=== PATIENT | female | born 1965 | race Caucasian/White ===

== ENCOUNTER 2017-05-19 16:08 | Emergency (ER) | payer SELFPAY ==
[~2017-05-19 16:08] MED LIST: ATARAX25 MG PO; DIFLUCAN 100MG100 MG PO; HUMALOG100 UNIT/1 SC; LISINOPRIL-HCT1 EAC1 PO; LOPID600 MG PO; NEURONTIN300 MG PO; NEURONTIN600 MG PO; PRILOSEC20 MG PO; SEROQUEL400 MG PO
== END 2017-05-19 17:54 | disposition home or self-care (01) ==
LOC: FER 16:08
DX: S39.012A Strain of muscle, fascia and tendon of lower back, initial encounter (principal); S80.01XA Contusion of right knee, initial encounter; S50.01XA Contusion of right elbow, initial encounter; I10 Essential (primary) hypertension; E11.9 Type 2 diabetes mellitus without complications; F31.9 Bipolar disorder, unspecified; F17.210 Nicotine dependence, cigarettes, uncomplicated; Z79.4 Long term (current) use of insulin; Z79.899 Other long term (current) drug therapy; W17.89XA Other fall from one level to another, initial encounter; Y92.009 Unspecified place in unspecified non-institutional (private) residence as the place of occurrence of the external cause
CPT/HCPCS: 72100; 99284; J1100; J1885

== ENCOUNTER 2020-09-14 21:32 | Emergency (ER) | payer OTHER ==
[~2020-09-14 21:32] MED LIST changes: +3IN1 COMMODE; +AUGMENTIN 875-1 EACH PO; +BACTRIM DS TAB1 EACH PO; +BASAGLAR K100 UNIT/1 SC; +BENTYL10 MG PO; +BUSPIRONE HCL15 MG PO; +CARAFATE1 GM PO; +CIPRO500 MG PO; +CLEOCIN300 MG PO; +DIFLUCAN150 M1 PO; +DOXEPIN HCL10 MG PO; +EFFEXOR XR37.5 MG PO; +FLEXERIL10 MG PO; +FLORINEF0.1 MG PO; +HABITROL14 MG TD; +HUMALOG 75100 UNIT/M SQ; +HUMULIN R100 UNIT/1 SC; +IBUPROFEN800 MG PO; +K-DUR20 MEQ PO; +KEFLEX500 MG PO; +KETOROLAC15 MG/1 M1 PO; +LAMICTAL100 MG PO; +LAMICTAL200 MG PO; +LANTUS **100 UNITS/ SC; +LASIX20 MG PO; +LISINOPRIL10 MG PO; +LOPRESSOR25 MG PO; +LOPRESSOR50 MG PO; +MELATONIN10 M2 PO; +NAPROXEN500 MG PO; +NEXIUM10 MG PO; +NORCO 5-325 TA1 EACH PO; +NORVASC5 MG PO; +NYSTATIN SUSP1 ML/ML SSW; +ONDANSETRON ODT4 MG SL; +PEPCID AC20 MG PO; +PERCOCET 5-3251 EACH PO; +PHENERGAN25 M1 PO; +PRILOSEC OTC20 MG PO; +PROMETHEGA12.5 MG/SU PR; +SEROQUEL 100MG100 MG PO; +SEROQUEL 25MG T25 MG PO; +SKELAXIN800 MG PO; +TIZANIDINE HCL4 M1 PO; +ZOCOR5 MG PO; +ZOFRAN4 MG PO; +ZOFRAN8 MG PO
[2020-09-14 22:43] LABS: BASOPHIL 0.5 % (0-2); EOSINOPHIL 2.1 % (0-5); HCT 35.5 % (37.0-47.0); HGB 11.3 g/dl (12.5-16.0); LYMPHOCYTE 20.2 % (15-48); MCH 27.1 pg (25.0-31.0); MCHC 31.8 g/dL (32.0-36.0); MCV 85.1 fL (78.0-100.0); MONOCYTE 7.8 % (0-12); MPV 11.1 fL (6.0-9.5); NEUTROPHIL 69.2 % (41-80); NRBC 0; PLT 302 K/uL (150-400); RBC 4.17 M/uL (4.20-5.40); RDW 15.2 % (11.5-14.0); WBC 8.6 K/uL (4.0-10.5)
[2020-09-14 23:09] LABS: LACTIC ACID 0.7 mmol/L (0.4-1.9)
[2020-09-14 23:13] LABS: ALBUMIN 3.6 g/dL (3.4-5.0); BILIRUBIN - TOTAL 0.2 mg/dL (0.2-1.0); BUN/CREAT RATIO (CALC) 26.1 RATIO; CREATININE 1.8 mg/dL (0.51-0.95); GLOBULIN (CALCULATION) 4.6 g/dL; POTASSIUM 5.1 mmol/L (3.5-5.1); TOTAL PROTEIN 8.2 g/dL (6.4-8.2)
[2020-09-15 00:35] LABS: BILIRUBIN NEGATIVE (NEGATIVE); BLOOD NEGATIVE Ery/uL (NEGATIVE); CLARITY CLEAR (CLEAR); COLOR YELLOW (YELLOW); GLUCOSE (U) 3+ mg/dL (NORMAL); LEUKOCYTES NEGATIVE Leu/uL (NEGATIVE); NITRITE NEGATIVE (NEGATIVE); PROTEIN NEGATIVE (NEGATIVE); UROBILINOGEN 0.2 mg/dL (0.2-1.0); pH 6.5 (5.0-9.0)
[2020-09-15] MEDS ORDERED: PHENERGAN25 M1 PO (01:26)
[2020-09-15] MEDS ORDERED: PERCOCET 7.5/321 TAB PO (02:02)
== END 2020-09-15 02:29 | disposition home or self-care (01) ==
LOC: FER 21:32
PROVIDERS: Emergency Medicine Emergency Medical Services
DX: K85.90 Acute pancreatitis without necrosis or infection, unspecified (principal); E11.9 Type 2 diabetes mellitus without complications; F17.210 Nicotine dependence, cigarettes, uncomplicated; Z90.710 Acquired absence of both cervix and uterus; Z90.49 Acquired absence of other specified parts of digestive tract; Z88.8 Allergy status to other drugs, medicaments and biological substances; Z79.4 Long term (current) use of insulin
CPT/HCPCS: 36415; 74018; 80053; 81003; 82150; 83605; 83690; 84145; 85025; 87070; 87077; 87205; J1170; J2550; J7030

== ENCOUNTER 2020-11-23 04:57 | Inpatient (IN) | payer OTHER ==
[~2020-11-23 04:57] MED LIST changes: +PERCOCET 7.5/321 TAB PO
[2020-11-23 06:07] LABS: BILIRUBIN NEGATIVE (NEGATIVE); BLOOD TRACE-INTACT Ery/uL (NEGATIVE); CLARITY CLEAR (CLEAR); COLOR YELLOW (YELLOW); GLUCOSE (U) 3+ mg/dL (NORMAL); LEUKOCYTES TRACE Leu/uL (NEGATIVE); NITRITE NEGATIVE (NEGATIVE); PROTEIN NEGATIVE (NEGATIVE); UROBILINOGEN 0.2 mg/dL (0.2-1.0)
[2020-11-23 06:07] LABS: BASOPHIL 0.2 % (0-2); EOSINOPHIL 0.3 % (0-5); HCT 30.7 % (37.0-47.0); HGB 10.1 g/dl (12.5-16.0); LYMPHOCYTE 4.6 % (15-48); MCH 27.9 pg (25.0-31.0); MCHC 32.9 g/dL (32.0-36.0); MCV 84.8 fL (78.0-100.0); MONOCYTE 5.8 % (0-12); MPV 10.7 fL (6.0-9.5); NEUTROPHIL 88.6 % (41-80); NRBC 0; PLT 246 K/uL (150-400); RBC 3.62 M/uL (4.20-5.40); RDW 15.6 % (11.5-14.0); WBC 13.6 K/uL (4.0-10.5)
[2020-11-23 06:39] LABS: BACTERIA TRACE; TRANSITIONAL EPITHELIAL CELLS RARE; URINARY RBC RARE; URINARY WBC RARE
[2020-11-23 06:40] LABS: RENAL EPITHELIAL CELLS RARE
[2020-11-23 06:44] LABS: ALBUMIN 3.4 g/dL (3.4-5.0); BILIRUBIN - TOTAL 0.2 mg/dL (0.2-1.0); BUN/CREAT RATIO (CALC) 22.5 RATIO; GLOBULIN (CALCULATION) 4.1 g/dL; POTASSIUM 4.6 mmol/L (3.5-5.1); TOTAL PROTEIN 7.5 g/dL (6.4-8.2)
[2020-11-23 12:39] LABS: PROTHROMBIN TIME 12.5 SECONDS (11.4-13.6)
[2020-11-23 16:14] LABS: CORONAVIRUS 2019 SARS-COV-2 NEGATIVE (NEGATIVE); INFLUENZA A NAA NEGATIVE (NEGATIVE)
[2020-11-23 17:47] LABS: URINE CREATININE 65.47 mg/dL (29.00-226.00)
[2020-11-24 04:39] LABS: ALBUMIN 2.8 g/dL (3.4-5.0); BILIRUBIN - TOTAL 0.3 mg/dL (0.2-1.0); BUN/CREAT RATIO (CALC) 20.2 RATIO; CREATININE 1.83 mg/dL (0.51-0.95); GLOBULIN (CALCULATION) 4.1 g/dL; POTASSIUM 4.6 mmol/L (3.5-5.1); TOTAL PROTEIN 6.9 g/dL (6.4-8.2)
[2020-11-24 05:27] LABS: BASOPHIL 0.3 % (0-2); EOSINOPHIL 0.7 & (0-5); HCT 33.4 % (37.0-47.0); HGB 10.2 g/dl (12.5-16.0); LYMPHOCYTE 15.2 % (15-48); MCH 26.9 pg (25.0-31.0); MCHC 30.5 g/dL (32.0-36.0); MCV 88.1 fL (78.0-100.0); MPV 10.4 fL (6.0-9.5); NEUTROPHIL 73.5 % (41-80); PLT 219 K/uL (150-400); RBC 3.79 M/uL (4.20-5.40); WBC 10.66 K/uL (4.0-10.5)
[2020-11-25 06:29] LABS: BASOPHIL 0.1 % (0-2); EOSINOPHIL 1.8 % (0-5); HCT 24.3 % (37.0-47.0); HGB 7.8 g/dl (12.5-16.0); LYMPHOCYTE 10.6 % (15-48); MCH 27.8 pg (25.0-31.0); MCHC 32.1 g/dL (32.0-36.0); MCV 86.5 fL (78.0-100.0); MONOCYTE 8.6 % (0-12); MPV 10.6 fL (6.0-9.5); NEUTROPHIL 78.5 % (41-80); NRBC 0; PLT 174 K/uL (150-400); RBC 2.81 M/uL (4.20-5.40); RDW 15.6 % (11.5-14.0); WBC 7.7 K/uL (4.0-10.5)
[2020-11-25 07:03] LABS: ALBUMIN 2.2 g/dL (3.4-5.0); BILIRUBIN - TOTAL 0.3 mg/dL (0.2-1.0); BUN/CREAT RATIO (CALC) 17.3 RATIO; CREATININE 2.49 mg/dL (0.51-0.95); GLOBULIN (CALCULATION) 3.7 g/dL; POTASSIUM 3.9 mmol/L (3.5-5.1); TOTAL PROTEIN 5.9 g/dL (6.4-8.2)
[2020-11-25] MEDS ORDERED: PERCOCET 10-321 EACH PO (13:20)
[2020-11-25] MEDS ORDERED: PHENERGAN25 M1 PO (13:20)
--- NOTE | 2020-11-25 14:26 | NUR ---
I have reviewed the assessment documented by the Student Nurse and agree with the findings.
== END 2020-11-25 14:50 | disposition home or self-care (01) | DRG 439 ==
LOC: FER 04:57 → FMS 11:57
PROVIDERS: Emergency Medicine; Student in an Organized Health Care Education/Training Program; ADMIT Allergy & Immunology Allergy
DX: K85.80 Other acute pancreatitis without necrosis or infection (principal); N17.9 Acute kidney failure, unspecified; E27.40 Unspecified adrenocortical insufficiency; K86.3 Pseudocyst of pancreas; K86.1 Other chronic pancreatitis; G89.29 Other chronic pain; I12.9 Hypertensive chronic kidney disease with stage 1 through stage 4 chronic kidney disease, or unspecified chronic kidney disease; E11.22 Type 2 diabetes mellitus with diabetic chronic kidney disease; E11.65 Type 2 diabetes mellitus with hyperglycemia; N18.30 Chronic kidney disease, stage 3 unspecified; F31.9 Bipolar disorder, unspecified; D63.1 Anemia in chronic kidney disease; F17.210 Nicotine dependence, cigarettes, uncomplicated; Z79.891 Long term (current) use of opiate analgesic; Z90.49 Acquired absence of other specified parts of digestive tract; Z86.19 Personal history of other infectious and parasitic diseases; Z79.899 Other long term (current) drug therapy; Z96.89 Presence of other specified functional implants; Z90.710 Acquired absence of both cervix and uterus; Z98.890 Other specified postprocedural states
CPT/HCPCS: 36415; 71045; 80053; 81001; 82150; 82570; 82962; 83036; 83605; 83690; 83735; 84300; 85025; 85610; C9113; J1170; J2270; J2405; J2543; J2550; J7030; U0002

== ENCOUNTER 2020-12-08 18:20 | Emergency (ER) | payer OTHER ==
[~2020-12-08 18:20] MED LIST changes: +PERCOCET 10-321 EACH PO
[2020-12-08 20:17] LABS: BASOPHIL 0.5 % (0-2); EOSINOPHIL 1.7 % (0-5); HCT 31.5 % (37.0-47.0); HGB 9.8 g/dl (12.5-16.0); LYMPHOCYTE 17.3 % (15-48); MCH 27.3 pg (25.0-31.0); MCHC 31.1 g/dL (32.0-36.0); MCV 87.7 fL (78.0-100.0); MONOCYTE 5.2 % (0-12); MPV 10.1 fL (6.0-9.5); NEUTROPHIL 74.9 % (41-80); NRBC 0; PLT 336 K/uL (150-400); RBC 3.59 M/uL (4.20-5.40); RDW 16.2 % (11.5-14.0)
[2020-12-08 20:45] LABS: ALBUMIN 3.3 g/dL (3.4-5.0); BILIRUBIN - TOTAL 0.2 mg/dL (0.2-1.0); BUN/CREAT RATIO (CALC) 19.9 RATIO; CREATININE 1.46 mg/dL (0.51-0.95); GLOBULIN (CALCULATION) 4.3 g/dL; POTASSIUM 4.7 mmol/L (3.5-5.1); TOTAL PROTEIN 7.6 g/dL (6.4-8.2)
== END 2020-12-09 00:30 | disposition home or self-care (01) ==
LOC: FER 18:20
PROVIDERS: Emergency Medicine Emergency Medical Services
DX: K86.1 Other chronic pancreatitis (principal); I10 Essential (primary) hypertension; F17.210 Nicotine dependence, cigarettes, uncomplicated; Z90.711 Acquired absence of uterus with remaining cervical stump; Z90.49 Acquired absence of other specified parts of digestive tract; Z88.8 Allergy status to other drugs, medicaments and biological substances; Z98.890 Other specified postprocedural states; Z79.899 Other long term (current) drug therapy
CPT/HCPCS: 36415; 80053; 82150; 83690; 84145; 85025; 87040; 96372; J1170; J2550; J7030

== ENCOUNTER 2021-01-20 02:07 | Day surgery (SDCO) | payer OTHER ==
[2021-01-20 03:16] LABS: ALBUMIN 3.2 g/dL (3.4-5.0); ALKALINE PHOSHATASE 133 U/L (46-116); ALT 32 U/L (14-59); AST 22 U/L (15-37); BILIRUBIN - DIRECT <0.05 mg/dL (0.00-0.20); BILIRUBIN - TOTAL 0.2 mg/dL (0.2-1.0); BUN 29 mg/dL (7-18); BUN/CREAT RATIO (CALC) 20.7 RATIO; CHLORIDE 103 mmol/L (98-107); CO2 (BICARBONATE) 25 mmol/L (21-32); GLOBULIN (CALCULATION) 4.1 g/dL; GLUCOSE 332 mg/dL (74-106); LIPASE 256 U/L (73-393); POTASSIUM 3.9 mmol/L (3.5-5.1); TOTAL PROTEIN 7.3 g/dL (6.4-8.2)
[2021-01-20 03:20] LABS: BASOPHIL 0.4 % (0-2); EOSINOPHIL 1.9 % (0-5); HCT 28.8 % (37.0-47.0); HGB 9.4 g/dl (12.5-16.0); LYMPHOCYTE 17.5 % (15-48); MCH 28.2 pg (25.0-31.0); MCHC 32.6 g/dL (32.0-36.0); MCV 86.5 fL (78.0-100.0); MONOCYTE 5.9 % (0-12); MPV 10.4 fL (6.0-9.5); NEUTROPHIL 73.3 % (41-80); NRBC 0; PLT 227 K/uL (150-400); RBC 3.33 M/uL (4.20-5.40); RDW 14.7 % (11.5-14.0); WBC 10.8 K/uL (4.0-10.5)
[2021-01-20 06:22] LABS: BILIRUBIN NEGATIVE (NEGATIVE); BLOOD NEGATIVE Ery/uL (NEGATIVE); CLARITY CLEAR (CLEAR); COLOR YELLOW (YELLOW); GLUCOSE (U) 3+ mg/dL (NORMAL); LEUKOCYTES NEGATIVE Leu/uL (NEGATIVE); NITRITE NEGATIVE (NEGATIVE); PROTEIN TRACE (LOW) mg/dL (NEGATIVE); SPECIFIC GRAVITY 1.015 (1.001-1.030); UROBILINOGEN 0.2 mg/dL (0.2-1.0)
[2021-01-20 06:25] LABS: HCG (URINE) SCREEN NEGATIVE (NEGATIVE)
[2021-01-20 06:53] LABS: BACTERIA TRACE; URINARY WBC RARE
[2021-01-21 06:06] LABS: BASOPHIL 0.2 % (0-2); EOSINOPHIL 2.2 % (0-5); HCT 30.8 % (37.0-47.0); HGB 9.8 g/dl (12.5-16.0); MCH 27.9 pg (25.0-31.0); MCHC 31.8 g/dL (32.0-36.0); MCV 87.7 fL (78.0-100.0); MONOCYTE 10.1 % (0-12); MPV 10.3 fL (6.0-9.5); NEUTROPHIL 69.3 % (41-80); NRBC 0; PLT 233 K/uL (150-400); RBC 3.51 M/uL (4.20-5.40); RDW 14.7 % (11.5-14.0); WBC 9.6 K/uL (4.0-10.5)
[2021-01-21 06:18] LABS: ALBUMIN 2.8 g/dL (3.4-5.0); BILIRUBIN - TOTAL 0.3 mg/dL (0.2-1.0); BUN/CREAT RATIO (CALC) 16.2 RATIO; CREATININE 1.36 mg/dL (0.51-0.95); GLOBULIN (CALCULATION) 4.3 g/dL; POTASSIUM 4.5 mmol/L (3.5-5.1); TOTAL PROTEIN 7.1 g/dL (6.4-8.2)
[2021-01-21] MEDS ORDERED: PERCOCET 10-321 EACH PO (14:29)
[2021-01-21] MEDS ORDERED: PHENERGAN25 M1 PO (14:29)
== END 2021-01-21 16:43 | disposition home or self-care (01) ==
LOC: FER 02:07 → FMS 08:11
PROVIDERS: Student in an Organized Health Care Education/Training Program; ADMIT Internal Medicine
DX: R10.13 Epigastric pain (principal); R10.12 Left upper quadrant pain; E11.22 Type 2 diabetes mellitus with diabetic chronic kidney disease; I12.9 Hypertensive chronic kidney disease with stage 1 through stage 4 chronic kidney disease, or unspecified chronic kidney disease; N18.9 Chronic kidney disease, unspecified; F31.9 Bipolar disorder, unspecified; E78.5 Hyperlipidemia, unspecified; F17.210 Nicotine dependence, cigarettes, uncomplicated; Z90.49 Acquired absence of other specified parts of digestive tract; Z82.49 Family history of ischemic heart disease and other diseases of the circulatory system; Z80.1 Family history of malignant neoplasm of trachea, bronchus and lung; Z79.4 Long term (current) use of insulin; Z20.822 Contact with and (suspected) exposure to COVID-19; Z87.442 Personal history of urinary calculi
CPT/HCPCS: 36415; 36600; 78264; 80048; 80053; 80076; 81001; 82009; 82803; 82962; 83690; 84145; 84484; 84703; 85025; 86140; A9541; G0378; J1170; J2550; Q0169; U0002

== ENCOUNTER 2021-02-09 20:33 | Day surgery (SDCO) | payer OTHER ==
[~2021-02-09] VITALS: Ht 175.3 cm; Wt 74.0 kg
[2021-02-09 21:13] LABS: BILIRUBIN NEGATIVE (NEGATIVE); BLOOD NEGATIVE Ery/uL (NEGATIVE); CLARITY HAZY (CLEAR); COLOR YELLOW (YELLOW); GLUCOSE (U) 3+ mg/dL (NORMAL); LEUKOCYTES NEGATIVE Leu/uL (NEGATIVE); NITRITE NEGATIVE (NEGATIVE); PROTEIN TRACE (LOW) mg/dL (NEGATIVE); UROBILINOGEN 0.2 mg/dL (0.2-1.0)
[2021-02-09 21:20] LABS: BACTERIA 2+; SQUAMOUS EPITHELIAL CELLS 20-50; URINARY RBC RARE; URINARY WBC RARE
[2021-02-09 21:35] LABS: BASOPHIL 0.3 % (0-2); EOSINOPHIL 2.3 % (0-5); HCT 31.8 % (37.0-47.0); HGB 10.8 g/dl (12.5-16.0); LYMPHOCYTE 13.3 % (15-48); MCH 28.8 pg (25.0-31.0); MCV 84.8 fL (78.0-100.0); MONOCYTE 5.2 % (0-12); MPV 10.9 fL (6.0-9.5); NEUTROPHIL 78.6 % (41-80); NRBC 0; PLT 279 K/uL (150-400); RBC 3.75 M/uL (4.20-5.40); RDW 14.4 % (11.5-14.0); WBC 9.3 K/uL (4.0-10.5)
[2021-02-09 22:08] LABS: CREATININE 1.98 mg/dL (0.51-0.95)
[2021-02-09 22:09] LABS: ALBUMIN 3.3 g/dL (3.4-5.0); BILIRUBIN - TOTAL 0.2 mg/dL (0.2-1.0); GLOBULIN (CALCULATION) 4.4 g/dL; POTASSIUM 5.4 mmol/L (3.5-5.1); TOTAL PROTEIN 7.7 g/dL (6.4-8.2)
[2021-02-10 05:52] LABS: BASOPHIL 0.4 % (0-2); EOSINOPHIL 2.9 % (0-5); HCT 29.2 % (37.0-47.0); HGB 9.5 g/dl (12.5-16.0); LYMPHOCYTE 27.4 % (15-48); MCH 28.2 pg (25.0-31.0); MCHC 32.5 g/dL (32.0-36.0); MCV 86.6 fL (78.0-100.0); MONOCYTE 6.1 % (0-12); MPV 10.8 fL (6.0-9.5); NEUTROPHIL 62.9 % (41-80); NRBC 0; PLT 231 K/uL (150-400); RBC 3.37 M/uL (4.20-5.40); RDW 14.4 % (11.5-14.0)
[2021-02-10 06:44] LABS: ALBUMIN 2.7 g/dL (3.4-5.0); BILIRUBIN - TOTAL 0.2 mg/dL (0.2-1.0); CREATININE 1.53 mg/dL (0.51-0.95); GLOBULIN (CALCULATION) 3.8 g/dL; POTASSIUM 4.1 mmol/L (3.5-5.1); TOTAL PROTEIN 6.5 g/dL (6.4-8.2)
[2021-02-11] MEDS ORDERED: LOPRESSOR25 MG PO (08:16)
[2021-02-11] MEDS ORDERED: HUMALOG 75100 UNIT/M SQ (08:16)
[2021-02-11] MEDS ORDERED: NEURONTIN400 MG PO (08:16)
[2021-02-11] MEDS ORDERED: FLORINEF0.1 MG PO ×2 (08:16→10:47)
[2021-02-11] MEDS ORDERED: BASAGLAR K100 UNIT/1 SC (08:16)
[2021-02-11] MEDS ORDERED: NORVASC5 MG PO (08:23)
[2021-02-11] MEDS ORDERED: PRINIVIL20 MG PO (08:23)
[2021-02-11 09:39] LABS: CREATININE 1.26 mg/dL (0.51-0.95); POTASSIUM 5.5 mmol/L (3.5-5.1)
== END 2021-02-11 12:47 | disposition home or self-care (01) ==
LOC: FER 20:33 → FMS 02-10 00:24
PROVIDERS: Emergency Medicine; Nurse Practitioner; ADMIT Allergy & Immunology Allergy
DX: I95.1 Orthostatic hypotension (principal); E27.40 Unspecified adrenocortical insufficiency; E11.65 Type 2 diabetes mellitus with hyperglycemia; E11.40 Type 2 diabetes mellitus with diabetic neuropathy, unspecified; I13.10 Hypertensive heart and chronic kidney disease without heart failure, with stage 1 through stage 4 chronic kidney disease, or unspecified chronic kidney disease; E11.22 Type 2 diabetes mellitus with diabetic chronic kidney disease; N18.30 Chronic kidney disease, stage 3 unspecified; D63.1 Anemia in chronic kidney disease; E87.1 Hypo-osmolality and hyponatremia; M25.552 Pain in left hip; M25.562 Pain in left knee; E78.5 Hyperlipidemia, unspecified; F10.11 Alcohol abuse, in remission; F17.210 Nicotine dependence, cigarettes, uncomplicated; E28.2 Polycystic ovarian syndrome; Z79.4 Long term (current) use of insulin; Z79.899 Other long term (current) drug therapy; Z88.8 Allergy status to other drugs, medicaments and biological substances; Z20.822 Contact with and (suspected) exposure to COVID-19; W19.XXXA Unspecified fall, initial encounter
CPT/HCPCS: 36415; 73501; 73560; 80048; 80053; 81001; 82533; 82962; 83036; 83690; 84484; 85025; 93005; G0378; J1644; J7030; U0002

== ENCOUNTER 2021-03-03 00:35 | Day surgery (SDCO) | payer OTHER ==
[~2021-03-03] VITALS: Ht 175.3 cm; Wt 73.7 kg
[~2021-03-03 00:35] MED LIST changes: +NEURONTIN400 MG PO; +PRINIVIL20 MG PO
[2021-03-03 01:23] LABS: BASOPHIL 0.2 % (0-2); EOSINOPHIL 1.9 % (0-5); HCT 27.3 % (37.0-47.0); HGB 8.9 g/dl (12.5-16.0); LYMPHOCYTE 22.6 % (15-48); MCH 28.3 pg (25.0-31.0); MCHC 32.6 g/dL (32.0-36.0); MCV 86.7 fL (78.0-100.0); MONOCYTE 6.4 % (0-12); MPV 10.5 fL (6.0-9.5); NEUTROPHIL 68.6 % (41-80); NRBC 0; PLT 214 K/uL (150-400); RBC 3.15 M/uL (4.20-5.40); RDW 14.1 % (11.5-14.0); WBC 9.6 K/uL (4.0-10.5)
[2021-03-03 01:45] LABS: BILIRUBIN NEGATIVE (NEGATIVE); BLOOD NEGATIVE Ery/uL (NEGATIVE); CLARITY CLEAR (CLEAR); COLOR YELLOW (YELLOW); GLUCOSE (U) 3+ mg/dL (NORMAL); LEUKOCYTES NEGATIVE Leu/uL (NEGATIVE); NITRITE NEGATIVE (NEGATIVE); PROTEIN TRACE (LOW) mg/dL (NEGATIVE); SPECIFIC GRAVITY 1.015 (1.001-1.030); UROBILINOGEN 0.2 mg/dL (0.2-1.0)
[2021-03-03 01:51] LABS: ECSTASY (MDMA) NEGATIVE (NEGATIVE); MARIJUANA (THC) POSITIVE (NEGATIVE); METHADONE NEGATIVE (NEGATIVE)
[2021-03-03 01:52] LABS: AMPHETAMINES NEGATIVE (NEGATIVE); BARBITURATES NEGATIVE (NEGATIVE); OPIATES NEGATIVE (NEGATIVE); OXYCODONE POSITIVE (NEGATIVE)
[2021-03-03 01:52] LABS: ALBUMIN 3.1 g/dL (3.4-5.0); BILIRUBIN - TOTAL 0.2 mg/dL (0.2-1.0); BUN/CREAT RATIO (CALC) 27.9 RATIO; CREATININE 1.65 mg/dL (0.51-0.95); POTASSIUM 3.7 mmol/L (3.5-5.1); TOTAL PROTEIN 7.1 g/dL (6.4-8.2)
[2021-03-03 01:53] LABS: SQUAMOUS EPITHELIAL CELLS RARE
[2021-03-03 02:02] LABS: LACTIC ACID 1.3 mmol/L (0.4-1.9)
[2021-03-03] MEDS ORDERED: GABAPENTIN800 MG PO (08:21)
[2021-03-03] MEDS ORDERED: HUMULIN R100 UNIT/1 SC (08:22)
[2021-03-03] MEDS ORDERED: SEROQUEL 25MG T25 MG PO (08:23)
[2021-03-03] MEDS ORDERED: OXYCODONE HCL10 MG PO (08:24)
[2021-03-04 10:10] LABS: HCT 30.5 % (37.0-47.0); HGB 9.9 g/dl (12.5-16.0); MCH 27.7 pg (25.0-31.0); MCHC 32.5 g/dL (32.0-36.0); MCV 85.4 fL (78.0-100.0); MPV 10.2 fL (6.0-9.5); RBC 3.57 M/uL (4.20-5.40)
[2021-03-04 10:27] LABS: BUN/CREAT RATIO (CALC) 25.5 RATIO; CREATININE 1.06 mg/dL (0.51-0.95); POTASSIUM 4.4 mmol/L (3.5-5.1)
[2021-03-04] MEDS ORDERED: PREDNISONE 20MG20 MG PO (11:36)
[2021-03-04] MEDS ORDERED: PERCOCET 5-3251 EACH PO (11:36)
--- NOTE | 2021-03-04 13:05 | NUR ---
03/04/21 Patient was discharged home. No discharge needs were identified.
== END 2021-03-04 12:45 | disposition home or self-care (01) ==
LOC: FER 00:35 → FMS 08:00
PROVIDERS: Emergency Medicine Emergency Medical Services; ADMIT Internal Medicine
DX: R55 Syncope and collapse (principal); E86.0 Dehydration; N17.9 Acute kidney failure, unspecified; R10.9 Unspecified abdominal pain; I12.9 Hypertensive chronic kidney disease with stage 1 through stage 4 chronic kidney disease, or unspecified chronic kidney disease; N18.9 Chronic kidney disease, unspecified; N13.30 Unspecified hydronephrosis; J98.11 Atelectasis; E28.2 Polycystic ovarian syndrome; E11.9 Type 2 diabetes mellitus without complications; E78.5 Hyperlipidemia, unspecified; D63.1 Anemia in chronic kidney disease; F31.9 Bipolar disorder, unspecified; E27.40 Unspecified adrenocortical insufficiency; K86.89 Other specified diseases of pancreas; R94.31 Abnormal electrocardiogram [ECG] [EKG]; F17.210 Nicotine dependence, cigarettes, uncomplicated; Z79.4 Long term (current) use of insulin; Z79.899 Other long term (current) drug therapy; Z96.89 Presence of other specified functional implants; Z90.49 Acquired absence of other specified parts of digestive tract; Z20.822 Contact with and (suspected) exposure to COVID-19
CPT/HCPCS: 36415; 36600; 70450; 71045; 80048; 80053; 80305; 81001; 82009; 82803; 82962; 83605; 84484; 85025; 87040; 93005; G0378; J0696; J1170; J2920; J7030; J7512; U0002

== ENCOUNTER 2021-03-09 17:30 | Emergency (ER) | payer OTHER ==
[~2021-03-09 17:30] MED LIST changes: +GABAPENTIN800 MG PO; +OXYCODONE HCL10 MG PO; +PREDNISONE 20MG20 MG PO
[2021-03-09 19:47] LABS: BASOPHIL 0.3 % (0-2); EOSINOPHIL 1.6 % (0-5); HCT 34.9 % (37.0-47.0); LYMPHOCYTE 15.6 % (15-48); MCH 28.2 pg (25.0-31.0); MCHC 31.5 g/dL (32.0-36.0); MONOCYTE 5.7 % (0-12); MPV 10.6 fL (6.0-9.5); NEUTROPHIL 76.1 % (41-80); NRBC 0; PLT 251 K/uL (150-400); RDW 14.9 % (11.5-14.0); WBC 12.6 K/uL (4.0-10.5)
[2021-03-09 19:51] LABS: MCV 89.5 fL (78.0-100.0)
[2021-03-09 20:16] LABS: ALBUMIN 3.3 g/dL (3.4-5.0); BILIRUBIN - TOTAL 0.1 mg/dL (0.2-1.0); BUN/CREAT RATIO (CALC) 30.2 RATIO; CREATININE 1.59 mg/dL (0.51-0.95); GLOBULIN (CALCULATION) 4.4 g/dL; POTASSIUM 5.1 mmol/L (3.5-5.1); TOTAL PROTEIN 7.7 g/dL (6.4-8.2)
[2021-03-09 20:21] LABS: BILIRUBIN NEGATIVE (NEGATIVE); BLOOD NEGATIVE Ery/uL (NEGATIVE); CLARITY CLEAR (CLEAR); COLOR YELLOW (YELLOW); GLUCOSE (U) 3+ mg/dL (NORMAL); LEUKOCYTES NEGATIVE Leu/uL (NEGATIVE); NITRITE NEGATIVE (NEGATIVE); PROTEIN TRACE (LOW) mg/dL (NEGATIVE); SPECIFIC GRAVITY 1.015 (1.001-1.030); UROBILINOGEN 0.2 mg/dL (0.2-1.0)
[2021-03-09 20:35] LABS: BACTERIA TRACE
== END 2021-03-09 23:10 | disposition home or self-care (01) ==
LOC: FER 17:30
PROVIDERS: Emergency Medicine
DX: R42 Dizziness and giddiness (principal); E11.9 Type 2 diabetes mellitus without complications; Z88.8 Allergy status to other drugs, medicaments and biological substances
CPT/HCPCS: 36415; 80053; 81001; 85025; 93005; J2270; J2550; J7030

== ENCOUNTER 2021-04-16 14:21 | Inpatient (IN) | payer OTHER ==
[~2021-04-16] VITALS: Ht 175.3 cm; Wt 71.9 kg
[2021-04-16 16:50] LABS: BASOPHIL 0.3 % (0-2); EOSINOPHIL 0.6 % (0-5); HCT 33.3 % (37.0-47.0); HGB 11.2 g/dl (12.5-16.0); LYMPHOCYTE 8.6 % (15-48); MCH 27.5 pg (25.0-31.0); MCHC 33.6 g/dL (32.0-36.0); MCV 81.8 fL (78.0-100.0); MONOCYTE 5.6 % (0-12); MPV 10.5 fL (6.0-9.5); NEUTROPHIL 82.9 % (41-80); NRBC 0; PLT 330 K/uL (150-400); RBC 4.07 M/uL (4.20-5.40); RDW 14.4 % (11.5-14.0); WBC 15.6 K/uL (4.0-10.5)
[2021-04-16 16:52] LABS: ALBUMIN 3.2 g/dL (3.4-5.0); BILIRUBIN - TOTAL 0.2 mg/dL (0.2-1.0); CREATININE 3.23 mg/dL (0.51-0.95); GLOBULIN (CALCULATION) 3.9 g/dL; POTASSIUM 4.6 mmol/L (3.5-5.1); TOTAL PROTEIN 7.1 g/dL (6.4-8.2)
[2021-04-17 07:25] LABS: BASOPHIL 0.3 % (0-2); EOSINOPHIL 1.2 % (0-5); HCT 31.6 % (37.0-47.0); HGB 10.1 g/dl (12.5-16.0); LYMPHOCYTE 22.5 % (15-48); MCV 84.5 fL (78.0-100.0); MPV 10.5 fL (6.0-9.5); NEUTROPHIL 69.5 % (41-80); NRBC 0; PLT 264 K/uL (150-400); RBC 3.74 M/uL (4.20-5.40); RDW 14.6 % (11.5-14.0); WBC 9.2 K/uL (4.0-10.5)
[2021-04-17 07:49] LABS: ALBUMIN 2.6 g/dL (3.4-5.0); BILIRUBIN - TOTAL 0.1 mg/dL (0.2-1.0); BUN/CREAT RATIO (CALC) 33.6 RATIO; CREATININE 2.26 mg/dL (0.51-0.95); GLOBULIN (CALCULATION) 3.7 g/dL; POTASSIUM 4.1 mmol/L (3.5-5.1); TOTAL PROTEIN 6.3 g/dL (6.4-8.2)
--- NOTE | 2021-04-17 11:22 | NUR ---
04/17/21 1045 MIDLINE LINE PROCEDURE EXPLAINED. PT PREPPRED AND DRAPED IN STERILE FASHION. PT 'S LEFT UPPER ARM BASILIC VEIN WAS VISULAIZED USING THE RITE SIX. THE AREA WAS NUMBED WITH 0.5CC OF 1% LOCOCAINE. A 21GA NEEDLE WAS USED. UNABLE TO THREAD THE GUIDE WIRE. THE NEEDLE AND WIRE REMOVED TOGETHER. ATTEMPTED AGAIN IN ANOTHER BASILIC VEIN SAME ARM STILL UNABLE TO THREAD THE GUIDE WIRE. MOVED TO RIGHT ARM USING STERILE TECHNIQUE, THE RIGHT UPPER ARM BASILIC VEIN WAS VISUALIZED USING THE SITE RITE 6. THE AREA WAS NUMBED WTIH 0.5CC OF 1% LIDOCAINE. A 21GA NEELE WAS USED. GOOD BLOOD RETURN WAS NOTED. THE GUIDE THREADED EASILY. THE NEEDLE WAS REMOVED. THE CATHETER WAS PLACED OVER THE NEEDLE AND SHEATH WERE REMOVED TOGETHER AND A CONNECTER WAS FLUSHED AND PLACED ON THE CATHETER. GOOD BLOOD RETURN WAS STILL NOTED. A STERILE STAT LOCK WAS PLACED ON THE CATHETER, A STERILE BIOPATCH WAS PLACED AT THE INSERTION SITE. A STERILE SORBAVIEW WAS PLACED OVER THE MIDLINE CATHETER. PT HAS A POWER GLIDE MIDLINE CATHETER. GOOD FOR 29DAYS, NOT A CENTRAL LINE. 20GA 10CM. TOLERATED WELL. REPORT TO Sergio KRAMER RN MEDSURG.
[2021-04-18 07:59] LABS: BASOPHIL 0.3 % (0-2); EOSINOPHIL 1.3 % (0-5); HCT 28.3 % (37.0-47.0); HGB 9.2 g/dl (12.5-16.0); LYMPHOCYTE 19.4 % (15-48); MCH 27.9 pg (25.0-31.0); MCHC 32.5 g/dL (32.0-36.0); MCV 85.8 fL (78.0-100.0); MONOCYTE 5.4 % (0-12); MPV 10.3 fL (6.0-9.5); NRBC 0; PLT 207 K/uL (150-400); RDW 14.6 % (11.5-14.0); WBC 6.9 K/uL (4.0-10.5)
[2021-04-18 08:56] LABS: ALBUMIN 2.6 g/dL (3.4-5.0); BILIRUBIN - TOTAL 0.1 mg/dL (0.2-1.0); CREATININE 1.48 mg/dL (0.51-0.95); GLOBULIN (CALCULATION) 3.7 g/dL; POTASSIUM 4.3 mmol/L (3.5-5.1); TOTAL PROTEIN 6.3 g/dL (6.4-8.2)
--- NOTE | 2021-04-18 11:52 | NUR ---
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 This includes housing and utilities. She reports to monitor her blood sugars, but is having difficulty with eating properly. Ms. Vazquez is followed at [facility] for medications. She was advised to also see a counselor at [facility]. - She was provided with sources for diabetic education in the community.
[2021-04-18] MEDS ORDERED: FIORICET1 EACH PO (12:18)
== END 2021-04-18 13:30 | disposition home or self-care (01) | DRG 638 ==
LOC: FER 14:21 → FMS 19:29
PROVIDERS: Nurse Practitioner; Nurse Practitioner Family; ADMIT Internal Medicine
PROC: 05HY33Z Insertion of Infusion Device into Upper Vein, Percutaneous Approach (ICD-10-PCS; principal; 2021-04-17)
DX: E10.65 Type 1 diabetes mellitus with hyperglycemia (principal); N17.9 Acute kidney failure, unspecified; E87.1 Hypo-osmolality and hyponatremia; E27.40 Unspecified adrenocortical insufficiency; E86.0 Dehydration; I95.9 Hypotension, unspecified; Z20.822 Contact with and (suspected) exposure to COVID-19; I13.10 Hypertensive heart and chronic kidney disease without heart failure, with stage 1 through stage 4 chronic kidney disease, or unspecified chronic kidney disease; I44.7 Left bundle-branch block, unspecified; E78.5 Hyperlipidemia, unspecified; D63.1 Anemia in chronic kidney disease; N18.9 Chronic kidney disease, unspecified; F31.9 Bipolar disorder, unspecified; F17.200 Nicotine dependence, unspecified, uncomplicated; Z79.52 Long term (current) use of systemic steroids; Z79.899 Other long term (current) drug therapy; Z87.442 Personal history of urinary calculi; Z90.49 Acquired absence of other specified parts of digestive tract; Z90.710 Acquired absence of both cervix and uterus; Z98.890 Other specified postprocedural states; Z88.8 Allergy status to other drugs, medicaments and biological substances
CPT/HCPCS: 36415; 36600; 71045; 80053; 82009; 82803; 83036; 84484; 85025; 93005; 94010; 94640; 94760; C1751; J1642; J1650; J7030; U0002

== ENCOUNTER 2021-08-02 18:44 | Inpatient (IN) | payer OTHER ==
[~2021-08-02] VITALS: Ht 165.1 cm; Wt 72.3 kg
[~2021-08-02 18:44] MED LIST changes: +FIORICET1 EACH PO
[2021-08-02 20:29] LABS: BASOPHIL 0.2 % (0-2); EOSINOPHIL 0.9 % (0-5); HCT 45.9 % (37.0-47.0); HGB 14.3 g/dl (12.5-16.0); LYMPHOCYTE 10.9 % (15-48); MCH 27.4 pg (25.0-31.0); MCHC 31.2 g/dL (32.0-36.0); MCV 88.1 fL (78.0-100.0); MONOCYTE 1.4 % (0-12); MPV 10.1 fL (6.0-9.5); NEUTROPHIL 85.7 % (41-80); NRBC 0; PLT 455 K/uL (150-400); RBC 5.21 M/uL (4.20-5.40); RDW 15.9 % (11.5-14.0); WBC 18.3 K/uL (4.0-10.5)
[2021-08-02 20:40] LABS: ALBUMIN 4.3 g/dL (3.4-5.0); BILIRUBIN - TOTAL 0.5 mg/dL (0.2-1.0); BUN/CREAT RATIO (CALC) 32.4 RATIO; CREATININE 2.1 mg/dL (0.51-0.95); GLOBULIN (CALCULATION) 4.9 g/dL; POTASSIUM 4.2 mmol/L (3.5-5.1); TOTAL PROTEIN 9.2 g/dL (6.4-8.2)
[2021-08-03 05:42] LABS: BILIRUBIN 1+ mg/dL (NEGATIVE); BLOOD NEGATIVE Ery/uL (NEGATIVE); CLARITY CLEAR (CLEAR); COLOR YELLOW (YELLOW); GLUCOSE (U) TRACE mg/dL (NORMAL); LEUKOCYTES NEGATIVE Leu/uL (NEGATIVE); NITRITE POSITIVE (NEGATIVE); PROTEIN 2+ mg/dL (NEGATIVE); SPECIFIC GRAVITY >=1.030 (1.001-1.030); UROBILINOGEN 0.2 mg/dL (0.2-1.0)
[2021-08-03 05:46] LABS: MARIJUANA (THC) POSITIVE (NEGATIVE)
[2021-08-03 05:49] LABS: BARBITURATES NEGATIVE (NEGATIVE); ECSTASY (MDMA) NEGATIVE (NEGATIVE); METHADONE NEGATIVE (NEGATIVE); OPIATES POSITIVE (NEGATIVE)
[2021-08-03 05:50] LABS: AMPHETAMINES NEGATIVE (NEGATIVE); OXYCODONE POSITIVE (NEGATIVE)
[2021-08-03 05:57] LABS: BACTERIA 2+
[2021-08-03 06:07] LABS: BASOPHIL 0.3 % (0-2); EOSINOPHIL 0.1 % (0-5); HCT 44.7 % (37.0-47.0); HGB 13.9 g/dl (12.5-16.0); LYMPHOCYTE 1.7 % (15-48); MCH 27.8 pg (25.0-31.0); MCHC 31.1 g/dL (32.0-36.0); MCV 89.4 fL (78.0-100.0); MONOCYTE 3.1 % (0-12); NRBC 0; PLT 305 K/uL (150-400); RDW 15.8 % (11.5-14.0); WBC 23.1 K/uL (4.0-10.5)
[2021-08-03 06:38] LABS: ALBUMIN 3.2 g/dL (3.4-5.0); BILIRUBIN - TOTAL 0.4 mg/dL (0.2-1.0); CREATININE 2.48 mg/dL (0.51-0.95); GLOBULIN (CALCULATION) 3.4 g/dL; POTASSIUM 5.5 mmol/L (3.5-5.1)
[2021-08-03 06:42] LABS: TOTAL PROTEIN 6.6 g/dL (6.4-8.2)
[2021-08-04 06:30] LABS: BASOPHIL 0.1 % (0-2); EOSINOPHIL 0.5 % (0-5); HCT 40.9 % (37.0-47.0); HGB 12.7 g/dl (12.5-16.0); LYMPHOCYTE 2.9 % (15-48); MCH 27.6 pg (25.0-31.0); MCHC 31.1 g/dL (32.0-36.0); MCV 88.9 fL (78.0-100.0); MPV 10.1 fL (6.0-9.5); NEUTROPHIL 93.1 % (41-80); NRBC 0; PLT 230 K/uL (150-400); WBC 15.2 K/uL (4.0-10.5)
[2021-08-04 06:44] LABS: ALBUMIN 2.5 g/dL (3.4-5.0); BILIRUBIN - TOTAL 0.4 mg/dL (0.2-1.0); CREATININE 2.16 mg/dL (0.51-0.95); GLOBULIN (CALCULATION) 4.2 g/dL; POTASSIUM 4.5 mmol/L (3.5-5.1); TOTAL PROTEIN 6.7 g/dL (6.4-8.2)
--- NOTE | 2021-08-05 10:57 | NUR ---
08/05/21 Ms. Vazquez is independent in the home and community. 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 She is not required to pay rent or utilities. Ms. Vazquez also works at [employer]. She is able to meet her financial obligations. Ms. Vazquez is followed at [facility] for medication management.
[2021-08-05] MEDS ORDERED: LEVAQUIN500 MG PO (15:15)
== END 2021-08-05 16:30 | disposition home or self-care (01) | DRG 871 ==
LOC: FER 18:44 → FTCU 08-03 03:31
PROVIDERS: Allergy & Immunology Allergy; Nurse Practitioner; Physician Assistant; ADMIT Internal Medicine
PROC: 3E033XZ Introduction of Vasopressor into Peripheral Vein, Percutaneous Approach (ICD-10-PCS; principal; 2021-08-03)
DX: A41.9 Sepsis, unspecified organism (principal); R65.21 Severe sepsis with septic shock; G93.41 Metabolic encephalopathy; A09 Infectious gastroenteritis and colitis, unspecified; K86.1 Other chronic pancreatitis; E27.40 Unspecified adrenocortical insufficiency; E87.2 Acidosis; E10.22 Type 1 diabetes mellitus with diabetic chronic kidney disease; N18.30 Chronic kidney disease, stage 3 unspecified; Z20.822 Contact with and (suspected) exposure to COVID-19; I12.9 Hypertensive chronic kidney disease with stage 1 through stage 4 chronic kidney disease, or unspecified chronic kidney disease; R77.8 Other specified abnormalities of plasma proteins; F31.9 Bipolar disorder, unspecified; F17.210 Nicotine dependence, cigarettes, uncomplicated; D63.1 Anemia in chronic kidney disease; E78.5 Hyperlipidemia, unspecified; Z90.49 Acquired absence of other specified parts of digestive tract; Z90.710 Acquired absence of both cervix and uterus; Z80.1 Family history of malignant neoplasm of trachea, bronchus and lung; Z82.49 Family history of ischemic heart disease and other diseases of the circulatory system; Z88.8 Allergy status to other drugs, medicaments and biological substances; Z86.19 Personal history of other infectious and parasitic diseases; Z98.890 Other specified postprocedural states
CPT/HCPCS: 36415; 36600; 70450; 71045; 80053; 80305; 81001; 82140; 82533; 82803; 82962; 83605; 83690; 83735; 84443; 84484; 85025; 87040; 87449; 93005; 96372; C9113; J1170; J1650; J1815; J2020; J2270; J2543; J2550; J3370; J7030; J7050; U0002

== ENCOUNTER 2021-08-23 10:56 | Day surgery (SDCO) | payer OTHER ==
[~2021-08-23] VITALS: Ht 165.1 cm; Wt 68.7 kg
[~2021-08-23 10:56] MED LIST changes: +LEVAQUIN500 MG PO
[2021-08-23 11:41] LABS: BASOPHIL 0.5 % (0-2); EOSINOPHIL 0.8 % (0-5); HCT 37.7 % (37.0-47.0); HGB 11.8 g/dl (12.5-16.0); LYMPHOCYTE 19.1 % (15-48); MCH 27.6 pg (25.0-31.0); MCHC 31.3 g/dL (32.0-36.0); MCV 88.3 fL (78.0-100.0); MONOCYTE 6.2 % (0-12); MPV 8.9 fL (6.0-9.5); NEUTROPHIL 72.3 % (41-80); NRBC 0; PLT 550 K/uL (150-400); RBC 4.27 M/uL (4.20-5.40); RDW 17.7 % (11.5-14.0); WBC 12.2 K/uL (4.0-10.5)
[2021-08-23 11:57] LABS: INR 0.92 (0.9-1.2); PROTHROMBIN TIME 11.8 SECONDS (11.8-13.4); PTT 27.2 SECONDS (24.4-34.7)
[2021-08-23 12:08] LABS: CKMB 0.7 ng/mL (0.0-3.6)
[2021-08-23 12:10] LABS: ALBUMIN 3.4 g/dL (3.4-5.0); BILIRUBIN - TOTAL 0.2 mg/dL (0.2-1.0); BUN/CREAT RATIO (CALC) 19.7 RATIO; CREATININE 1.42 mg/dL (0.51-0.95); GLOBULIN (CALCULATION) 4.8 g/dL; POTASSIUM 4.7 mmol/L (3.5-5.1); TOTAL PROTEIN 8.2 g/dL (6.4-8.2)
[2021-08-23 13:35] LABS: BILIRUBIN NEGATIVE (NEGATIVE); BLOOD NEGATIVE Ery/uL (NEGATIVE); CLARITY CLEAR (CLEAR); COLOR YELLOW (YELLOW); GLUCOSE (U) NORMAL (NORMAL); LEUKOCYTES NEGATIVE Leu/uL (NEGATIVE); NITRITE NEGATIVE (NEGATIVE); PROTEIN NEGATIVE (NEGATIVE); SPECIFIC GRAVITY 1.015 (1.001-1.030); UROBILINOGEN 0.2 mg/dL (0.2-1.0); pH 7.5 (5.0-9.0)
[2021-08-23 13:38] LABS: AMPHETAMINES NEGATIVE (NEGATIVE); BARBITURATES NEGATIVE (NEGATIVE); ECSTASY (MDMA) NEGATIVE (NEGATIVE); MARIJUANA (THC) POSITIVE (NEGATIVE); METHADONE NEGATIVE (NEGATIVE); OPIATES NEGATIVE (NEGATIVE); OXYCODONE NEGATIVE (NEGATIVE)
--- NOTE | 2021-08-24 01:23 | NUR ---
DAUGHTER PAIGE GARDNER CALLED TO CHECK ON MOTHER AND STATED SHE RECIEVED A CALL FROM THE HOSPITAL MD TO RETURN HER CALL. DAUGHTER STATED THAT SHE WOULD BE CALLING BACK IN THE MORNING. PATIENT DID SPEAK WITH HER DAUGHTER ON THE PHONE AND LEFT PHONE NUMBER TO CALL FOR ANY QUESTIONS. PAIGE GARDNER [phone]
[2021-08-24 04:19] LABS: BASOPHIL 0.6 % (0-2); EOSINOPHIL 1.4 % (0-5); LYMPHOCYTE 19.9 % (15-48); MCH 27.2 pg (25.0-31.0); MCHC 29.7 g/dL (32.0-36.0); MCV 91.4 fL (78.0-100.0); MONOCYTE 8.3 % (0-12); MPV 9.1 fL (6.0-9.5); NEUTROPHIL 68.8 % (41-80); NRBC 0; PLT 472 K/uL (150-400); RBC 4.05 M/uL (4.20-5.40); RDW 17.8 % (11.5-14.0); WBC 12.4 K/uL (4.0-10.5)
[2021-08-24 04:45] LABS: BUN/CREAT RATIO (CALC) 18.3 RATIO; CREATININE 1.53 mg/dL (0.51-0.95); POTASSIUM 4.5 mmol/L (3.5-5.1)
== END 2021-08-24 15:41 | disposition home or self-care (01) ==
LOC: FER 10:56 → FTCU 16:45
PROVIDERS: Internal Medicine; ADMIT Family Medicine
DX: G93.40 Encephalopathy, unspecified (principal); F31.9 Bipolar disorder, unspecified; E11.649 Type 2 diabetes mellitus with hypoglycemia without coma; E11.22 Type 2 diabetes mellitus with diabetic chronic kidney disease; I12.9 Hypertensive chronic kidney disease with stage 1 through stage 4 chronic kidney disease, or unspecified chronic kidney disease; N18.30 Chronic kidney disease, stage 3 unspecified; F12.90 Cannabis use, unspecified, uncomplicated; D64.9 Anemia, unspecified; E78.5 Hyperlipidemia, unspecified; Z86.73 Personal history of transient ischemic attack (TIA), and cerebral infarction without residual deficits; Z20.822 Contact with and (suspected) exposure to COVID-19; Z88.8 Allergy status to other drugs, medicaments and biological substances; Z90.49 Acquired absence of other specified parts of digestive tract; Z90.711 Acquired absence of uterus with remaining cervical stump; Z96.49 Presence of other endocrine implants; Z87.891 Personal history of nicotine dependence
CPT/HCPCS: 36415; 70450; 71045; 80048; 80053; 80061; 80305; 81003; 82140; 82550; 82553; 82962; 83874; 83880; 84484; 85025; 85610; 85730; 93005; G0378; G0480; J1650; U0002

== ENCOUNTER 2022-02-14 20:16 | Emergency (ER) | payer OTHER ==
[2022-02-14 21:07] LABS: BASOPHIL 0.2 % (0-2); EOSINOPHIL 0.4 % (0-5); HCT 34.2 % (37.0-47.0); HGB 11.8 g/dl (12.5-16.0); LYMPHOCYTE 6.7 % (15-48); MCH 28.1 pg (25.0-31.0); MCHC 34.5 g/dL (32.0-36.0); MCV 81.4 fL (78.0-100.0); MONOCYTE 5.2 % (0-12); MPV 10.3 fL (6.0-9.5); NEUTROPHIL 86.7 % (41-80); NRBC 0; PLT 229 K/uL (150-400); RDW 15.7 % (11.5-14.0); WBC 17.9 K/uL (4.0-10.5)
[2022-02-14 21:32] LABS: ALBUMIN 3.2 g/dL (3.4-5.0); BILIRUBIN - TOTAL 0.4 mg/dL (0.2-1.0); BUN/CREAT RATIO (CALC) 20.9 RATIO; CREATININE 1.63 mg/dL (0.51-0.95); GLOBULIN (CALCULATION) 4.3 g/dL; MAGNESIUM 1.8 mg/dL (1.8-2.4); POTASSIUM 3.5 mmol/L (3.5-5.1); TOTAL PROTEIN 7.5 g/dL (6.4-8.2)
[2022-02-14 21:39] LABS: LACTIC ACID 0.3 mmol/L (0.4-1.9)
[2022-02-14 21:49] LABS: CORONAVIRUS 2019 SARS-COV-2 NEGATIVE (NEGATIVE); INFLUENZA A NAA NEGATIVE (NEGATIVE)
[2022-02-15 00:34] LABS: BILIRUBIN NEGATIVE (NEGATIVE); BLOOD 1+ Ery/uL (NEGATIVE); CLARITY CLEAR (CLEAR); COLOR YELLOW (YELLOW); GLUCOSE (U) 3+ mg/dL (NORMAL); LEUKOCYTES NEGATIVE Leu/uL (NEGATIVE); NITRITE POSITIVE (NEGATIVE); PROTEIN 2+ mg/dL (NEGATIVE); UROBILINOGEN 0.2 mg/dL (0.2-1.0)
[2022-02-15 00:54] LABS: SQUAMOUS EPITHELIAL CELLS RARE; URINARY RBC RARE
[2022-02-15 03:41] LABS: CREATININE 1.55 mg/dL (0.51-0.95)
[2022-02-15] MEDS ORDERED: DOXYCYCLINE HY100 MG PO (03:56)
[2022-02-15] MEDS ORDERED: BACTRIM DS TAB1 EACH PO (03:56)
[2022-02-15] MEDS ORDERED: DIFLUCAN150 MG PO (03:57)
== END 2022-02-15 06:52 | disposition home or self-care (01) ==
LOC: FER 20:16
PROVIDERS: Emergency Medicine
DX: L03.116 Cellulitis of left lower limb (principal); R07.9 Chest pain, unspecified; R42 Dizziness and giddiness; R65.10 Systemic inflammatory response syndrome (SIRS) of non-infectious origin without acute organ dysfunction; E11.22 Type 2 diabetes mellitus with diabetic chronic kidney disease; I12.9 Hypertensive chronic kidney disease with stage 1 through stage 4 chronic kidney disease, or unspecified chronic kidney disease; N18.9 Chronic kidney disease, unspecified; F17.200 Nicotine dependence, unspecified, uncomplicated; Z88.8 Allergy status to other drugs, medicaments and biological substances; Z20.822 Contact with and (suspected) exposure to COVID-19; Z28.310 Unvaccinated for COVID-19
CPT/HCPCS: 36415; 71045; 71275; 80048; 80053; 81001; 83605; 83735; 83880; 84484; 85025; 85379; 87040; 93005; J1170; J1885; J2543; J3370; J7030; J7050; Q9967; U0002

== ENCOUNTER 2022-02-17 11:55 | Emergency (ER) | payer OTHER ==
[~2022-02-17 11:55] MED LIST changes: +DIFLUCAN150 MG PO; +DOXYCYCLINE HY100 MG PO
[2022-02-18] MEDS ORDERED: LANTUS **100 UNITS/ SC (16:23)
[2022-02-18] MEDS ORDERED: NORCO 5-325 TA1 EACH PO (16:24)
== END 2022-02-17 15:31 | disposition left against medical advice (07) ==
LOC: FER 11:55
DX: L02.416 Cutaneous abscess of left lower limb (principal); L03.116 Cellulitis of left lower limb; M25.512 Pain in left shoulder; M79.672 Pain in left foot; I10 Essential (primary) hypertension; E11.9 Type 2 diabetes mellitus without complications; F17.210 Nicotine dependence, cigarettes, uncomplicated; Z88.8 Allergy status to other drugs, medicaments and biological substances; W19.XXXA Unspecified fall, initial encounter; Z53.29 Procedure and treatment not carried out because of patient's decision for other reasons; Z28.310 Unvaccinated for COVID-19
CPT/HCPCS: 99282

== ENCOUNTER 2022-02-18 11:11 | Inpatient (IN) | payer OTHER ==
[~2022-02-18] VITALS: Ht 175.3 cm; Wt 74.5 kg
[2022-02-18 12:20] LABS: BASOPHIL 0.6 % (0-2); EOSINOPHIL 1.3 % (0-5); HCT 33.5 % (37.0-47.0); HGB 10.9 g/dl (12.5-16.0); LYMPHOCYTE 8.2 % (15-48); MCH 27.5 pg (25.0-31.0); MCHC 32.5 g/dL (32.0-36.0); MCV 84.6 fL (78.0-100.0); MONOCYTE 6.9 % (0-12); MPV 10.8 fL (6.0-9.5); NEUTROPHIL 82.1 % (41-80); NRBC 0; PLT 228 K/uL (150-400); RBC 3.96 M/uL (4.20-5.40); RDW 15.6 % (11.5-14.0); WBC 10.8 K/uL (4.0-10.5)
[2022-02-18 12:32] LABS: INR 1.06 (0.9-1.2); PROTHROMBIN TIME 13.2 SECONDS (11.8-13.4); PTT 29.2 SECONDS (24.4-34.7)
[2022-02-18 12:53] LABS: ALBUMIN 2.3 g/dL (3.4-5.0); BILIRUBIN - TOTAL 0.3 mg/dL (0.2-1.0); CREATININE 2.05 mg/dL (0.51-0.95); GLOBULIN (CALCULATION) 4.7 g/dL; POTASSIUM 3.2 mmol/L (3.5-5.1)
[2022-02-18 13:10] LABS: LACTIC ACID 0.9 mmol/L (0.4-1.9)
[2022-02-18] MEDS ORDERED: LANTUS **100 UNITS/ SC (16:23)
[2022-02-18] MEDS ORDERED: NORCO 5-325 TA1 EACH PO (16:24)
[2022-02-19 06:42] LABS: BASOPHIL 0.5 % (0-2); EOSINOPHIL 1.7 % (0-5); HCT 30.6 % (37.0-47.0); HGB 9.8 g/dl (12.5-16.0); LYMPHOCYTE 10.4 % (15-48); MCH 27.6 pg (25.0-31.0); MCV 86.2 fL (78.0-100.0); MONOCYTE 7.8 % (0-12); MPV 11.3 fL (6.0-9.5); NEUTROPHIL 78.6 % (41-80); NRBC 0; PLT 231 K/uL (150-400); RBC 3.55 M/uL (4.20-5.40); RDW 15.7 % (11.5-14.0); WBC 9.8 K/uL (4.0-10.5)
[2022-02-19 07:05] LABS: BUN/CREAT RATIO (CALC) 19.6 RATIO; CREATININE 1.43 mg/dL (0.51-0.95); POTASSIUM 3.1 mmol/L (3.5-5.1)
--- NOTE | 2022-02-19 10:27 | NUR ---
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 She is also employed at [employer]. Ms. Vazquez is independent. - She is experiencing a decline in mood r/t chronic medical issues and pain. - Ms. Vazquez denies suicidal ideations or intentions. PCP is Kayce Hogan NP. - Ms. 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 SHe reports to smoke marijuana 1 - 2 times per month. - Recommendations were made for Ms. Vazquez to return to [facility] for counseling. Recommnedations were also made for her to consider marijuana cessation.
[2022-02-21] MEDS ORDERED: BACTRIM DS TAB1 EACH PO (14:19)
[2022-02-21] MEDS ORDERED: PERCOCET 10-321 EACH PO (14:34)
--- NOTE | 2022-02-21 15:11 | NUR ---
1511 PATIENT IS BEING DISCHARGED. EXPLAINED HOW TO REMOVE THE PACKING 2 INCHES EACH DAY AND CUT IT OFF AND COVER WITH CLEAN 4X4 AND ABD PAD AND TAPE IN PLACE. VOICED UNDERSTANDING OF THE INSTRUCTIONS. ALSO INSTRUCTIONS WHERE GIVEN TO MONITOR FOR SIGNS AND SYMPTOMS ON INCREASED INFECTIONS AND FOUL SMELLING DRAINAGE. VOICED UNDERSTANDING.
[2022-02-24] MEDS ORDERED: NORVASC5 MG PO (00:59)
[2022-02-24] MEDS ORDERED: PHENERGAN25 M1 PO (01:08)
[2022-02-24] MEDS ORDERED: NORCO 5-325 TA1 EACH PO (13:30)
[2022-02-24] MEDS ORDERED: KEFLEX250 MG PO (13:33)
[2022-02-24] MEDS ORDERED: MONISTAT 31 EACH VG (14:13)
== END 2022-02-21 15:11 | disposition home or self-care (01) | DRG 638 ==
LOC: FER 11:11 → FMS 14:49
PROVIDERS: Emergency Medicine; Physician Assistant; Student in an Organized Health Care Education/Training Program; ADMIT Internal Medicine
PROC: 0H9AXZZ Drainage of Inguinal Skin, External Approach (ICD-10-PCS; principal; 2022-02-20 16:00)
DX: E11.628 Type 2 diabetes mellitus with other skin complications (principal); L02.214 Cutaneous abscess of groin; L02.215 Cutaneous abscess of perineum; L03.314 Cellulitis of groin; N17.9 Acute kidney failure, unspecified; N18.4 Chronic kidney disease, stage 4 (severe); E78.5 Hyperlipidemia, unspecified; I12.9 Hypertensive chronic kidney disease with stage 1 through stage 4 chronic kidney disease, or unspecified chronic kidney disease; E11.22 Type 2 diabetes mellitus with diabetic chronic kidney disease; D63.1 Anemia in chronic kidney disease; F17.210 Nicotine dependence, cigarettes, uncomplicated; F41.9 Anxiety disorder, unspecified; F31.9 Bipolar disorder, unspecified; Z88.8 Allergy status to other drugs, medicaments and biological substances; Z80.1 Family history of malignant neoplasm of trachea, bronchus and lung; Z82.49 Family history of ischemic heart disease and other diseases of the circulatory system; Z90.49 Acquired absence of other specified parts of digestive tract; Z79.899 Other long term (current) drug therapy; Z79.4 Long term (current) use of insulin
CPT/HCPCS: 36415; 73700; 80048; 80053; 80202; 83036; 83605; 84145; 85025; 85610; 85730; 87040; 87070; 87075; 87077; 87186; 87205; 93005; J0696; J1170; J1650; J1815; J1885; J2250; J2270; J2543; J2704; J3010; J3370; J7030; J7050; J7120

== ENCOUNTER 2022-04-27 12:17 | Inpatient (IN) | payer OTHER ==
[~2022-04-27] VITALS: Ht 175.3 cm; Wt 77.2 kg
[~2022-04-27 12:17] MED LIST changes: +KEFLEX250 MG PO; +MONISTAT 31 EACH VG
[2022-04-27 13:44] LABS: BASOPHIL 0.4 % (0-2); EOSINOPHIL 0.9 % (0-5); HCT 38.3 % (37.0-47.0); HGB 12.1 g/dl (12.5-16.0); LYMPHOCYTE 6.3 % (15-48); MCH 27.6 pg (25.0-31.0); MCHC 31.6 g/dL (32.0-36.0); MCV 87.2 fL (78.0-100.0); MONOCYTE 4.6 % (0-12); MPV 9.4 fL (6.0-9.5); NEUTROPHIL 87.3 % (41-80); NRBC 0; PLT 319 K/uL (150-400); RBC 4.39 M/uL (4.20-5.40); RDW 16.1 % (11.5-14.0); WBC 12.9 K/uL (4.0-10.5)
[2022-04-27 14:21] LABS: BILIRUBIN NEGATIVE (NEGATIVE); BLOOD TRACE-LYSED Ery/uL (NEGATIVE); CLARITY CLEAR (CLEAR); COLOR YELLOW (YELLOW); GLUCOSE (U) 3+ mg/dL (NORMAL); LEUKOCYTES NEGATIVE Leu/uL (NEGATIVE); NITRITE NEGATIVE (NEGATIVE); PROTEIN 2+ mg/dL (NEGATIVE); UROBILINOGEN 0.2 mg/dL (0.2-1.0)
[2022-04-27 14:24] LABS: ECSTASY (MDMA) NEGATIVE (NEGATIVE); MARIJUANA (THC) POSITIVE (NEGATIVE); METHADONE NEGATIVE (NEGATIVE); OPIATES POSITIVE (NEGATIVE)
[2022-04-27 14:24] LABS: ALBUMIN 3.6 g/dL (3.4-5.0); ALKALINE PHOSHATASE 121 U/L (46-116); ALT 39 U/L (14-59); AST 33 U/L (15-37); BILIRUBIN - TOTAL 0.3 mg/dL (0.2-1.0); CHLORIDE 102 mmol/L (98-107); CO2 (BICARBONATE) 26 mmol/L (21-32); CREATININE 1.98 mg/dL (0.51-0.95); GLOBULIN (CALCULATION) 4.6 g/dL; GLUCOSE 138 mg/dL (74-106); MAGNESIUM 2.3 mg/dL (1.8-2.4); POTASSIUM 3.5 mmol/L (3.5-5.1); TOTAL PROTEIN 8.2 g/dL (6.4-8.2)
[2022-04-27 14:25] LABS: AMPHETAMINES NEGATIVE (NEGATIVE); BARBITURATES NEGATIVE (NEGATIVE); OXYCODONE NEGATIVE (NEGATIVE)
[2022-04-27 14:30] LABS: SQUAMOUS EPITHELIAL CELLS RARE; URINARY RBC RARE
[2022-04-27 14:30] LABS: LACTIC ACID 0.4 mmol/L (0.4-1.9)
[2022-04-27 14:31] LABS: AMORPHOUS URATES CRYSTALS MODERATE
[2022-04-27 15:07] LABS: BUN 37 mg/dL (7-18); BUN/CREAT RATIO (CALC) 18.7 RATIO
[2022-04-27 15:08] LABS: ACETAMINOPHEN (TYLENOL) <2.0 ug/mL (10.0-30.0)
--- NOTE | 2022-04-27 18:43 | NUR ---
PATIENT UNABLE TO ANSWER ANY QUESTIONS OR FOLLOW ANY COMMANDS. DATA BASE WAS NOT FINISHED.
--- NOTE | 2022-04-27 18:47 | NUR ---
PATIENT ARRIVED TO THE FLOOR AND WAS VERY DROWSY AND CONDUSED UNABLE TO FOLLOW ANY COMMONDS UNABLE TO ANSWER ANY QUESTIONS UNABLE TO TELL HER NAME OR BIRTHDAY. WAS TRYING TO JUMP OUT OF THE BED, "STATING I NEED TO GET UP ATTEMPTED TO REORIENT WITHOUT ANY SUCCESS. BED ALARM WAS ACTIVATED AND PLACED ON THE HIGHEST SETTING.CALL BE IS WITHIN EASY REACH.
[2022-04-27] MEDS ORDERED: GABAPENTIN800 MG PO (22:56)
[2022-04-27] MEDS ORDERED: HYDROCODON-ACE1 EAC2 PO (22:57)
[2022-04-27] MEDS ORDERED: PROMETHAZINE 2525 MG PO (22:59)
--- NOTE | 2022-04-27 23:08 | NUR ---
IN PATIENT'S BELONGINGS WERE FOUND 1 BOTTLE OF HYDROCODONE 7.5/325 CONTAINING 10.5 TABLETS 1 BOTTLE OF GABAPENTIN 800MG CONTAINING 40.5 TABLETS AND A BOTTLE LABLED GABAPENTIN 800 MG CONTAINTING A MIXTURE OR THE FOLLOWING 1- LAMOTRIGINE 14- DOXEPIN 1- HYDRALIZINE 4- TIZANIDINE 2- 800MG GABAPENTIN 8- TRAMADOL 12- BACLOFEN 10- PANTOPRAZOLE 3- PHENERGAN NIRAV FARRELL RN WAS PRESENT AT THE TIME OF PILL COUNTING AND VERIFIED THE AMOUNTS LISTED. ALL MEDICATIONS WERE THEN PUT BACK IN THEIR CONTAINERS AND LOCKED IN THE PATIENTS MED CART IN THE HALLWAY.
[2022-04-28 07:02] LABS: HCT 38.3 % (37.0-47.0); MCH 27.3 pg (25.0-31.0); MCHC 31.3 g/dL (32.0-36.0); MCV 87.2 fL (78.0-100.0); MPV 9.7 fL (6.0-9.5); RBC 4.39 M/uL (4.20-5.40); RDW 16.3 % (11.5-14.0); WBC 10.1 K/uL (4.0-10.5)
[2022-04-28 07:08] LABS: INR 0.93 (0.9-1.2); PROTHROMBIN TIME 12.2 SECONDS (11.9-13.9)
[2022-04-28 07:41] LABS: CREATININE 1.43 mg/dL (0.51-0.95); POTASSIUM 2.9 mmol/L (3.5-5.1)
[2022-04-28 14:40] LABS: BUN/CREAT RATIO (CALC) 22.4 RATIO; CREATININE 1.34 mg/dL (0.51-0.95); POTASSIUM 3.8 mmol/L (3.5-5.1)
--- NOTE | 2022-04-28 16:02 | NUR ---
04/28/22 Pt is not able to participate in an assessment at this time.
[2022-04-29 06:55] LABS: HCT 36.8 % (37.0-47.0); HGB 11.6 g/dl (12.5-16.0); MCH 27.5 pg (25.0-31.0); MCHC 31.5 g/dL (32.0-36.0); MCV 87.2 fL (78.0-100.0); RBC 4.22 M/uL (4.20-5.40); RDW 16.2 % (11.5-14.0)
[2022-04-29 07:18] LABS: BUN/CREAT RATIO (CALC) 20.1 RATIO; CREATININE 1.39 mg/dL (0.51-0.95); POTASSIUM 3.9 mmol/L (3.5-5.1)
[2022-04-29] MEDS ORDERED: FARXIGA10 MG PO (10:22)
[2022-04-29] MEDS ORDERED: SEROQUEL 100MG100 MG PO (10:22)
[2022-04-29] MEDS ORDERED: HYDRALAZINE25 MG PO (10:23)
[2022-04-29] MEDS ORDERED: LAMICTAL100 MG PO (10:23)
[2022-04-29] MEDS ORDERED: NORVASC5 MG PO (10:23)
[2022-04-29] MEDS ORDERED: EFFEXOR XR150 MG PO (10:23)
[2022-04-29] MEDS ORDERED: SINEQUAN10 MG PO (10:24)
[2022-04-29] MEDS ORDERED: TIZANIDINE HCL4 M1 PO (10:24)
[2022-04-29] MEDS ORDERED: PROTONIX 40MG T40 MG PO (10:24)
--- NOTE | 2022-04-29 16:11 | NUR ---
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 Ms. Vazquez was admitted with AMS. Her amonia level was high and adjustments were made to the Gabapintin home medication dose. Ms. Vazquez also has a dx of bipolar disease. She is no longer followed at [facility]. recommendations were made for Ms. Vazquez to reschedule at [facility] with a provider and therapist. Also, recommendations were made for her to f/up with the PCP to review medications.
[2022-04-29] MEDS ORDERED: LACTULOSE20 GM/30 M PO (17:15)
[2022-04-29] MEDS ORDERED: GABAPENTIN300 MG PO (17:15)
== END 2022-04-29 18:22 | disposition home or self-care (01) | DRG 92 ==
LOC: EDBD 12:17 → FER 12:17 → FMS 16:25
PROVIDERS: Emergency Medicine; ADMIT Family Medicine
DX: G92.8 Other toxic encephalopathy (principal); N17.9 Acute kidney failure, unspecified; E87.6 Hypokalemia; F31.9 Bipolar disorder, unspecified; T40.605A Adverse effect of unspecified narcotics, initial encounter; T43.015A Adverse effect of tricyclic antidepressants, initial encounter; T42.6X5A Adverse effect of other antiepileptic and sedative-hypnotic drugs, initial encounter; Z28.310 Unvaccinated for COVID-19; G93.89 Other specified disorders of brain; K71.10 Toxic liver disease with hepatic necrosis, without coma; E11.65 Type 2 diabetes mellitus with hyperglycemia; E11.22 Type 2 diabetes mellitus with diabetic chronic kidney disease; F19.10 Other psychoactive substance abuse, uncomplicated; I12.9 Hypertensive chronic kidney disease with stage 1 through stage 4 chronic kidney disease, or unspecified chronic kidney disease; N18.30 Chronic kidney disease, stage 3 unspecified; D63.1 Anemia in chronic kidney disease
CPT/HCPCS: 36415; 70450; 70553; 71045; 72170; 73600; 80048; 80053; 80305; 81001; 82140; 82550; 83605; 83735; 84145; 84443; 84484; 85025; 85610; 87088; 93005; 94010; 94760; 94762; 97162; 97166; 97530-GP; A9579; G0480; J0360; J0780; J1650; J3490; J7030; J7120